=== PATIENT | female | born 1950 | race Caucasian/White ===

== ENCOUNTER 2018-11-08 10:21 | Day surgery (SDC) | payer MEDICARE, OTHER ==
[2018-11-08] MEDS ORDERED: PROPOFOL 20 ML (11:25)
[2018-11-08] MEDS ORDERED: ONDANSETRON 4 MG INJ IV (11:30)
== END 2018-11-08 15:46 | disposition home or self-care (01) ==
LOC: GIL 10:21
DX: K44.9 Diaphragmatic hernia without obstruction or gangrene (principal); K21.9 Gastro-esophageal reflux disease without esophagitis; K29.60 Other gastritis without bleeding; I10 Essential (primary) hypertension; E03.9 Hypothyroidism, unspecified
CPT/HCPCS: 43239; 88305